=== PATIENT | male | born 1975 | race Caucasian/White ===

== ENCOUNTER → 2021-07-10 09:28 | Outpatient (BNVA) | payer OTHER, SELFPAY | PROVIDERS: PCP Internal Medicine; Referring Provider Internal Medicine; Visit Provider Physician Assistant Surgical | DX: Z13.89 Encounter for screening for other disorder (principal) ==

== ENCOUNTER 2021-07-21 10:54 | Outpatient (REF) | payer OTHER, SELFPAY ==
--- NOTE | ~2021-07-21 | XR_ITS ---
EXAMINATION: XR CHEST CLINICAL INFORMATION: Obesity COMPARISON: Chest x-ray 02/25/2019 TECHNIQUE: 2 views of the chest were obtained. FINDINGS: Cardiac silhouette is normal in size. The lungs are adequately aerated. There is no lobar consolidation. No pleural effusion or pneumothorax. Mild degenerative changes of the spine. XR/XR chest 2V IMPRESSION: No acute pulmonary pathology.
[2021-07-21 12:41] LABS: MANUAL DIFF FLAG NO
[2021-07-21 13:08] LABS: Basophils Percent Auto 0.3 % (0-2); Eosinophils Absolute Auto 0.2 X10*3/uL (0.0-0.4); Eosinophils Percent Auto 2.5 % (0-4); Hematocrit 41.4 % (42.0-52.0); Hemoglobin 14.1 g/dl (14.0-18.0); Imm Gran Abs Auto 0.03 X10*3/uL (0.00-0.03); Imm Gran Pct Auto 0.3 % (0.0-0.4); Lymphocytes Absolute Auto 1.8 X10*3/uL (1.2-4.9); Lymphocytes Percent Auto 18.3 % (20-40); Mean Corpuscular HGB Conc 34.1 g/dl (31.0-36.0); Mean Corpuscular Hemoglobin 29.1 pg (27.0-33.0); Mean Corpuscular Volume 85.4 fL (80.0-98.0); Mean Platelet Volume 9.4 fL (9.4-12.4); Monocytes Absolute Auto 0.6 X10*3/uL (0.1-1.2); Monocytes Percent Auto 6.3 % (2-11); Neutrophils Percent Auto 72.3 % (45-73); Platelet Count 300 X10*3/uL (160-400); Red Blood Count 4.85 X10*6/uL (4.60-5.80); White Blood Count 9.6 X10*3/uL (4.8-10.8)
[2021-07-21 13:20] LABS: Estimated Average Glucose 103 mg/dL; Hemoglobin A1c % 5.2 %
[2021-07-21 13:48] LABS: Alanine Aminotransferase 20 U/L (0-40); Alkaline Phosphatase 104 U/L (39-117); Anion Gap 11 (12-20); Aspartate Amino Transferase 16 U/L (5-37); Bilirubin Total 0.9 mg/dL (0.0-1.0); Blood Urea Nitrogen 14 mg/dL (9-16); C Reactive Protein 2.67 mg/dL (< or = 0.50); Calcium 9.5 mg/dL (8.4-10.2); Carbon Dioxide 25 mmol/L (22-29); Chloride 107 mmol/L (96-108); Cholesterol 173 mg/dL; Estimated Glomerular Filt Rate 60; Glucose Random 89 mg/dL (60-115); HDL Cholesterol 24 mg/dL; Iron 65 mcg/dL (45-160); LDL Cholesterol Calculated 114 mg/dl; Percent Iron Saturation 25 % (15-50); Sodium 139 mmol/L (135-145); Total Iron Binding Capacity 257 mcg/dL (228-428); Total Protein 7.6 g/dL (6.5-8.0); Triglycerides 179 mg/dL; Unsaturated Iron Binding 192 ug/dL
[2021-07-21 14:06] LABS: Ferritin 185 ng/mL (20-250); Insulin 17 uU/mL (2-29); TSH reflex Free T4 1.92 uIU/mL (0.32-4.0); Vitamin D 25-OH Total 11.4 ng/mL (>30)
[2021-07-21 14:35] LABS: Folate 14.3 ng/mL (> or = 4.0); Vitamin B12 265 pg/mL (200-900)
[2021-07-22 15:07] LABS: H Pylori Breath Test Negative (Negative)
[2021-07-24 15:53] LABS: Calcium (PTHI) 9.4 mg/dL (8.6-10.3); PTHI 91 pg/mL (16-77)
[2021-07-25 00:57] LABS: Zinc 80 mcg/dL (60-130)
[2021-07-26 11:32] LABS: Vitamin B1 8 nmol/L (8-30)
[2021-07-26 16:41] LABS: Vitamin A 38 mcg/dL (38-98)
== END 2021-07-21 10:55 | disposition home or self-care (01) ==
LOC: HO.XRAY 10:54
PROVIDERS: PCP Internal Medicine; Referring Provider Internal Medicine; Visit Provider Physician Assistant Surgical
DX: E66.9 Obesity, unspecified (principal); Z71.3 Dietary counseling and surveillance; Z11.0 Encounter for screening for intestinal infectious diseases
CPT/HCPCS: 36415; 71046; 80053; 80061; 82306; 82607; 82728; 82746; 83013; 83036; 83525; 83540; 83970; 84425; 84443; 84590; 84630; 85025; 86140; 99202; 99211

== ENCOUNTER → 2021-07-27 11:00 | Outpatient (BNVA) | payer OTHER, SELFPAY | PROVIDERS: PCP Internal Medicine; Visit Provider Counselor Mental Health | DX: F43.20 Adjustment disorder, unspecified (principal); E66.9 Obesity, unspecified | CPT/HCPCS: 90791 ==

== ENCOUNTER → 2021-07-28 09:10 | Outpatient (REF) | payer OTHER, SELFPAY ==
--- NOTE | 2021-07-28 09:16 | ECG_ITS ---
Test Reason : e66.9 Blood Pressure : / mmHG Vent. Rate : 064 BPM Atrial Rate : 064 BPM P-R Int : 152 ms QRS Dur : 092 ms QT Int : 400 ms P-R-T Axes : 054 024 002 degrees QTc Int : 412 ms Normal sinus rhythm Normal ECG When compared with ECG of 25-FEB-2019 20:05, No significant change was found Referred By: Mandeep Clay Electronically Signed By:SALOMON PFEIFFER
== END ==
LOC: HO.CARD 09:10
PROVIDERS: PCP Internal Medicine; Visit Provider Physician Assistant Surgical
DX: E66.9 Obesity, unspecified (principal)
CPT/HCPCS: 93005

== ENCOUNTER → 2021-08-04 14:17 | Outpatient (BNVA) | payer OTHER, SELFPAY | PROVIDERS: PCP Internal Medicine; Visit Provider Dietitian, Registered | DX: E66.9 Obesity, unspecified (principal) | CPT/HCPCS: 97802 ==

== ENCOUNTER → 2021-08-18 09:13 | Outpatient (BNVA) | payer OTHER, SELFPAY | PROVIDERS: PCP Internal Medicine; Visit Provider Physician Assistant Surgical | DX: E66.9 Obesity, unspecified (principal); Z68.38 Body mass index [BMI] 38.0-38.9, adult | CPT/HCPCS: 99212 ==

== ENCOUNTER 2021-09-06 09:31 | Outpatient (REF) | payer OTHER, SELFPAY ==
--- NOTE | ~2021-09-06 | US_ITS ---
EXAMINATION: US COMPLETE ABDOMEN WITH LIVER ELASTOGRAPHY CLINICAL INFORMATION: Obesity COMPARISON: None. TECHNIQUE: Real-time imaging of the abdominal viscera. Noninvasive ultrasound liver fibrosis assessment is performed using Chris ElastPQ point quantification shear wave elastography (2D-SWE) with a C5-2 MHz transducer. Multiple elastography samples are obtained. FINDINGS: PANCREAS: Most of the pancreas is obscured by overlying gas. ABDOMINAL AORTA: Mid abdominal aorta is normal caliber. The proximal and distal abdominal aorta is obscured by overlying gas. INFERIOR VENA CAVA: Visualized portions are normal. LIVER: Normal. The liver demonstrates normal size, contour and echogenicity. No focal lesion or intrahepatic biliary duct dilatation. The right lobe measures 16.7 cm in length. The left lobe measures 9.88 cm in length. Portal flow is hepatopedal. Shear wave liver elastography median stiffness is 1.28 m/s (reference: normal median stiffness is 1.3 m/s or less). IQR/median stiffness to assess sampling precision is 0.1 (reference: good quality data set is IQR/median stiffness of 0.15 or less). GALLBLADDER: There is a small nonmobile echogenic lesion along the inner gallbladder wall suggestive polyp. The gallbladder wall is thickened measuring 0.3 cm. The gallbladder is physiologically distended without evidence of stones, sludge, wall thickening or pericholecystic fluid. COMMON BILE DUCT: Normal in caliber measuring 0.2 cm in diameter. RIGHT KIDNEY: Normal. No hydronephrosis. No renal calculi or focal parenchymal lesions. The kidney measures 10.8 cm in maximum dimension. LEFT KIDNEY: Normal. No hydronephrosis. No renal calculi or focal parenchymal lesions. The kidney measures 11.5 cm in maximum dimension. SPLEEN: Normal. The spleen measures 13.7 cm in maximum dimension. FREE FLUID: None US/US abdomen comp w elastography IMPRESSION: 1. Limited exam secondary to patient's body habitus with pancreas, abdominal aorta and IVC not visualized. There is likely a small gallbladder polyp. 2. Liver elastography: Median liver stiffness 1.28 m/s suggestive of high probability normal. REFERENCE: Society of Radiologists in Ultrasound Liver Stiffness Thresholds (2020): LIVER STIFFNESS THRESHOLDS: *Liver Stiffness equal or less than 1.3 m/s: High probability of being normal. *Liver Stiffness less than 1.7 m/s: In the absence of other known clinical signs, rules out compensated advanced chronic liver disease. *Liver Stiffness 1.7-2.1 m/s: Suggestive of compensated advanced chronic liver disease but need further test for confirmation. *Liver Stiffness over 2.1 m/s: Rules in compensated advanced chronic liver disease. *Liver Stiffness over 2.4 m/s: Suggestive of clinically significant portal hypertension. QUALITY OF DATA SET: *IQR/Median value equal or less than 0.15 implies a quality data set. *IQR/Median value over 0.15 implies a poor quality data set. SIGNIFICANT CHANGE FROM PRIOR EXAM: Significant change if liver stiffness measurement is 10% or greater from prior exam. OTHER CONSIDERATIONS: The stage of liver fibrosis may be overestimated in the setting of acute hepatitis, liver inflammation, elevated liver function tests, hepatic vascular congestion, obstructive cholestasis, non-fasting state, and infiltrative diseases such as amyloidosis and lymphoma. In some patients with NAFLD, the liver stiffness thresholds for compensated advanced chronic liver disease may be lower. In causes other than viral hepatitis and NAFLD, liver stiffness thresholds are not well established.
--- NOTE | ~2021-09-06 | FL_ITS ---
EXAMINATION: XR FLUOROSCOPY UPPER GI WITH AIR CLINICAL INFORMATION: Obesity. Preop. COMPARISON: None TECHNIQUE: Routine upper GI contrast study was performed in upright and lying position. FINDINGS: Following oral administration of thick barium and effervescent granules there is normal propagation bolus from the oral cavity through the pharynx, esophagus into stomach without any evidence of obstruction, narrowing or stricture. On placing patient supine and prone lying the course, caliber and peristalsis of the stomach and the duodenal bulb is normal. The mucosal pattern of the stomach and the duodenum is normal. FLUOROSCOPY TIME: 1.3 minutes DOSE AREA PRODUCT: 205 uGy-m2 (microgray-meter squared) FL/FL upper GI w air IMPRESSION: Unremarkable upper GI exam.
== END 2021-09-06 09:32 | disposition home or self-care (01) ==
LOC: HO.US 09:31
PROVIDERS: Visit Provider Surgery
DX: E66.9 Obesity, unspecified (principal)
CPT/HCPCS: 74246; 76705; 76981

== ENCOUNTER → 2021-09-13 08:29 | Outpatient (BNVA) | payer OTHER, SELFPAY | PROVIDERS: PCP Internal Medicine; Referring Provider Internal Medicine; Visit Provider Physician Assistant Surgical | DX: E66.9 Obesity, unspecified (principal); Z68.36 Body mass index [BMI] 36.0-36.9, adult | CPT/HCPCS: 99212 ==

== ENCOUNTER 2021-10-10 07:56 | Outpatient (REF) | payer OTHER, SELFPAY ==
[2021-10-10 08:23] LABS: MANUAL DIFF FLAG NO
[2021-10-10 08:32] LABS: Basophils Percent Auto 0.5 % (0-2); Eosinophils Absolute Auto 0.3 X10*3/uL (0.0-0.4); Eosinophils Percent Auto 3.2 % (0-4); Hematocrit 41.4 % (42.0-52.0); Hemoglobin 13.8 g/dl (14.0-18.0); Imm Gran Abs Auto 0.02 X10*3/uL (0.00-0.03); Imm Gran Pct Auto 0.2 % (0.0-0.4); Lymphocytes Absolute Auto 1.7 X10*3/uL (1.2-4.9); Lymphocytes Percent Auto 20.5 % (20-40); Mean Corpuscular HGB Conc 33.3 g/dl (31.0-36.0); Mean Corpuscular Hemoglobin 29.1 pg (27.0-33.0); Mean Corpuscular Volume 87.2 fL (80.0-98.0); Mean Platelet Volume 9.9 fL (9.4-12.4); Monocytes Absolute Auto 0.6 X10*3/uL (0.1-1.2); Monocytes Percent Auto 7.3 % (2-11); Neutrophils Absolute Auto 5.5 x10*3/uL (2.0-8.3); Neutrophils Percent Auto 68.3 % (45-73); Platelet Count 298 X10*3/uL (160-400); Red Blood Count 4.75 X10*6/uL (4.60-5.80); Red Cell Distribution Width 12.7 % (11.0-16.0); White Blood Count 8.1 X10*3/uL (4.8-10.8)
[2021-10-10 08:35] LABS: Estimated Average Glucose 91 mg/dL; Hemoglobin A1c % 4.8 %; INTERNATIONAL NORM RATIO 1.1 (0.9-1.1); Prothrombin Time 13.1 SEC (10.0-13.1)
[2021-10-10 09:05] LABS: Alanine Aminotransferase 17 U/L (0-40); Albumin Level 3.9 g/dL (3.5-5.0); Alkaline Phosphatase 98 U/L (39-117); Anion Gap 11 (12-20); Aspartate Amino Transferase 13 U/L (5-37); Bilirubin Total 0.7 mg/dL (0.0-1.0); Blood Urea Nitrogen 17 mg/dL (9-16); C Reactive Protein 2.39 mg/dL (< or = 0.50); Carbon Dioxide 27 mmol/L (22-29); Chloride 105 mmol/L (96-108); Cholesterol 142 mg/dL; Estimated Glomerular Filt Rate 56; Glucose Random 92 mg/dL (60-115); HDL Cholesterol 25 mg/dL; LDL Cholesterol Calculated 97 mg/dl; Potassium 4.2 mmol/L (3.3-5.1); Sodium 139 mmol/L (135-145); Total Protein 7.1 g/dL (6.5-8.0); Triglycerides 101 mg/dL
[2021-10-10 09:26] LABS: Insulin 9 uU/mL (2-29); TSH reflex Free T4 3.11 uIU/mL (0.32-4.0)
== END 2021-10-10 07:57 | disposition home or self-care (01) ==
LOC: HO.LAB 07:56
PROVIDERS: PCP Internal Medicine; Visit Provider Surgery
DX: E66.9 Obesity, unspecified (principal); Z68.34 Body mass index [BMI] 34.0-34.9, adult
CPT/HCPCS: 36415; 80053; 80061; 83036; 83525; 84443; 85025; 85610; 85730; 86140

== ENCOUNTER 2021-10-18 06:06 | Inpatient (IN) | payer OTHER, SELFPAY ==
[2021-10-12 10:12] VITALS: BMI 35.4
[2021-10-12 10:27] VITALS: BMI 35.4
--- NOTE | 2021-10-14 14:22 | MHC.SHP ---
Pre-Procedural Eval Section A Date of Service: 10/14/21 The patient is an INPATIENT: Yes The History & Physical has been completed within 30 days and I have reviewed it.: Yes Section B Chief Complaint: obesity Relevant Family History (Specify if Yes): No Relevant Social History: None Present Medications: None Medical History: No relevant PMH History of Previous Operations: No relevant previous surgery Allergies: Allergies Allergy/AdvReac Type Severity Reaction Status Date / Time No Known Allergies Allergy Verified 09/13/21 08:46 Review of Systems Sugical H&P ROS: Negative: Constitution, Cardiovascular, Respiratory, Neurological, Psychiatric, Hem-Onc, Allergic/Immunologic, Gastrointestinal, Genitourinary, Musculoskeletal, Integumentary, Endocrine and Eyes/Ears/Nose/Throat Exam Surgical H&P Exam: Normal: HEENT, Normal: Heart, Normal: Lungs, Normal: Extremities, Normal: Abdomen, Normal: Skin and Normal: Neurological Plan Diagnosis/Plan: Unchanged I have reviewed the history and physical and performed a pertinent physical examination on my patient. No changes have occurred unless specified.
--- NOTE | 2021-10-17 09:00 | HO.ANESPROP2 ---
Documented by User: Sara Shah NP 10/17/21 09:06 HPI - Anesthesia Eval Consult details Narrative: 46yo M for Gastrectomy Sleeve,EGD,poss diaphragmatic hernia,poss ventral hernia,poss open, PMFSH Active Problems Active Problems: All Active Problems (Updated 10/12/21 @ 10:33 by Emy Vega RN) Obesity (BMI 30-39.9) (Acute) GERD (gastroesophageal reflux disease) (Acute) Adjustment disorder (Acute) Obesity (Acute) BMI 37.0-37.9, adult (Acute) BMI 34.0-34.9,adult (Acute) Past Medical History Medical History (Updated 10/12/21 @ 10:33 by Emy Vega RN) COVID-19 vaccination declined GERD (gastroesophageal reflux disease) Family History Family History Mother Hypertension Stroke Father No problems noted. Brother Hypertension Sister No problems noted. Son No problems noted. Son No problems noted. Son No problems noted. Son No problems noted. Son No problems noted. Son No problems noted. Daughter No problems noted. Daughter No problems noted. Daughter No problems noted. Daughter No problems noted. Surgical History Surgical History (Updated 10/12/21 @ 10:06 by Emy Vega RN) History of ankle surgery History of incision and drainage Social History Social History Are you a primary childcare worker to a significant other at home: No Do you presently have visiting nurse or other home services: No Alcohol intake: never Patient Tobacco Use Status: Never used Tobacco Use of substances other than those prescribed or required for medical reasons: No Have you been hit, kicked, punched, or otherwise hurt by someone within the past year? If so, by whom?: No Are you DNR?: No Advance Directives: No Advance Directives Information Provided: Yes (brochure mailed) Advance Directives on File: No Recently lost weight without trying: No Eating poorly because of decreased appetite: No Nutrition Risks: No Nutritional Risk Poor oral hygiene: No Meds Allergies Allergy/AdvReac Type Severity Reaction Status Date / Time No Known Allergies Allergy Verified 09/13/21 08:46 Exam Exam Date and Time: October 17, 2021 0900 Height,Weight and Vital Signs: Height 6 ft Weight 118.388 kg Pertinent Lab Results Pertinent Lab Results: Laboratory Tests 10/10/21 08:15 Blood Type A Positive Antibody Screen NEGATIVE Laboratory Tests 10/10/21 10/10/21 08:15 08:15 WBC 8.1 Hgb 13.8 L Hct 41.4 L Plt Count 298 Sodium 139 Potassium 4.2 Chloride 105 Carbon Dioxide 27 BUN 17 H Creatinine 1.37 Narrative Narrative: EKG 07/2021 Vent. Rate : 064 BPM ? ? Atrial Rate : 064 BPM ?? P-R Int : 152 ms? QRS Dur : 092 ms ? ? QT Int : 400 ms ? ? ? P-R-T Axes : 054 024 002 degrees ?? QTc Int : 412 ms ? Normal sinus rhythm Normal ECG When compared with ECG of 25-FEB-2019 20:05, No significant change was found Assessment and Plan Assessment Anesthesia Assessment: Chart Reviewed Documented by User: Georgina Oakes MD 10/18/21 07:25 [facility]LY [facility], [facility] Past Medical History Medical History (Updated 10/12/21 @ 10:33 by Emy Vega RN) COVID-19 vaccination declined GERD (gastroesophageal reflux disease) Family History Family History Mother Hypertension Stroke Father No problems noted. Brother Hypertension Sister No problems noted. Son No problems noted. Son No problems noted. Son No problems noted. Son No problems noted. Son No problems noted. Son No problems noted. Daughter No problems noted. Daughter No problems noted. Daughter No problems noted. Daughter No problems noted. Family history of problems with anesthesia: No Surgical History Surgical History (Updated 10/12/21 @ 10:06 by Emy Vega RN) History of ankle surgery History of incision and drainage History of Problems with Anesthesia: No Social History Social History Are you a primary childcare worker to a significant other at home: No Do you presently have visiting nurse or other home services: No Alcohol intake: never Patient Tobacco Use Status: Never used Tobacco Use of substances other than those prescribed or required for medical reasons: No Have you been hit, kicked, punched, or otherwise hurt by someone within the past year? If so, by whom?: No Are you DNR?: No Advance Directives: No Advance Directives Information Provided: Yes (brochure mailed) Advance Directives on File: No Recently lost weight without trying: No Eating poorly because of decreased appetite: No Nutrition Risks: No Nutritional Risk Poor oral hygiene: No Meds Allergies Allergy/AdvReac Type Severity Reaction Status Date / Time No Known Allergies Allergy Verified 09/13/21 08:46 Exam Height,Weight and Vital Signs: Height 6 ft Weight 118.388 kg Vital Signs Temp Pulse Resp BP Pulse Ox O2 Del Method 10/18/21 06:31 97.3 F 61 16 137/68 96 Room Air Pertinent Lab Results Pertinent Lab Results: Laboratory Tests 10/10/21 08:15 Blood Type A Positive Antibody Screen NEGATIVE Laboratory Tests 10/10/21 10/10/21 08:15 08:15 WBC 8.1 Hgb 13.8 L Hct 41.4 L Plt Count 298 Sodium 139 Potassium 4.2 Chloride 105 Carbon Dioxide 27 BUN 17 H Creatinine 1.37 Lab Results 10/10/21 10/17/21 Range/Units 08:15 10:55 COVID-19 ([facility]) Negative (Negative) COVID-19 Clin Com See Note Blood Type A Positive Antibody Screen NEGATIVE Airway Mallampati Class: II TM Dist: >3cm Neck ROM: Full Loose/Missing/Broken Teeth: No (Patient denies broken or loose teeth) Heart: RRR Lungs: CTAB Assessment and Plan Assessment Anesthesia Assessment: Anesthesia Plan Discussed Final Anesthetic Review Family History of Problems with Anesthesia: No History of Problems with Anesthesia: No NPO: Yes ASA Class: III Final Preanesthetic Review: No Changes in Pt Med Stat, Meds/Allgs Chart Reviewed, Consent Obtained/Reviewed and Anes Risks/Benef Reviewed Patient Risk: Intermediate Procedure Risk: Intermediate Assessment/Block/Sedation in SS: Assess/Block/Sedation- Anesthetic Plan Anesthetic Plan: GA Disposition: Standard PACU and Inp. Admit - Standard Bed
[2021-10-17 11:20] LABS: COVID-19 Test Negative (Negative)
[2021-10-18] VITALS (15 sets, daily range): BP systolic 137–186; BP diastolic 64–106; PULSE 55–98; RESP 16–20; TEMP 36.1–36.8; O2SAT 90–97
[2021-10-18] MEDS: Lactated Ringers 1,000 ML 999 ML IV ×2 (06:40→07:40)
--- NOTE | 2021-10-18 10:17 | PM.DS ---
DS: Providers Provider Date of Service: 10/19/21 Date of admission: 10/18/21 06:06 Primary care physician: Manda Lin MD DS: Summary Hospital Course Hospital Course: ADMITTING DIAGNOSIS: morbid obesity DISCHARGE DIAGNOSIS: same, s/p laparoscopic sleeve gastrectomy PAST SURGICAL HISTORY: ankle surgery PROCEDURE: upper endoscopy, laparoscopic sleeve gastrectomy DISCHARGE SUMMARY: History of Present Illness: The patient is a 46year-old woman with a BMI of 39.7 kg/m2 and associated co-morbidities as described above. The patient had extensive work-up,lost 35.6 lbs preoperatively and was electively scheduled for laparoscopic, possible open sleeve gastrectomy and gastropexy. Risks and complications of the surgery were discussed with the patient in advance, particularly the possibility of , pulmonary embolism, anastomotic leak, bleeding, bowel injury, GERD, cardiac, renal or pulmonary complications. The patient understood all the risks and was in agreement with the surgical plan. Hospital Course: The patient underwent an uneventful laparoscopic sleeve gastrectomy with gastropexy on the day of admission. Postoperatively, the patient was transferred to the surgical floor. The patient received IV Acetaminophen and IV dilaudid for pain control. Patient was started on bariatric phase 1 diet POD #0. On postoperative day one, the patient was feeling well without nausea, vomiting, fevers, or tachycardia. The patient had some mild incisional pain and the abdomen was soft. On the morning of postoperative day one, the patient was continued on 1 ounce of water or ice every half hour. During the day, the patient did fairly well, having some incisional pain, but able to ambulate adequately and to tolerate liquids well. Since the patient is doing well, we decided that the patient was ready to be discharged. The patient was given instructions to follow-up with me next week and to call my office for any fever over 101, persistent abdominal pain, nausea, vomiting, GERD, symptoms of DVT such as calf tenderness, or leg swelling, or pulmonary embolism such as chest pain or shortness of breath. The patient was also instructed to drink 40-60 ounces of liquids per day using the 1-ounce cups. The patient had been given prescriptions for Tylenol for pain, Zofran prn for nausea, and pantoprazole and carafate previously. The patient was encouraged to ambulate and use the incentive spirometer. The patient was allowed to shower, but no baths, and encouraged to stay active at home. All of these instructions were given to the patient personally. All questions were answered and the patient understood all instructions, the instructions were also given to the patient in print. Time Spent with Patient Time attestation: Total time spent providing and/or coordinating discharge services: Discharge coordination time: Less than 30 minutes Quality: Safe Use of Opioids Does Pt have an Active Cancer Diagnosis on the Problem List?: No Quality: Stroke Does the patient have a stroke diagnosis?: No Physical Exam Vital Signs: Vital Signs: Last Vital Signs Temp 97.3 F 10/18/21 06:31 Pulse 61 10/18/21 06:31 Resp 16 10/18/21 06:31 BP 137/68 10/18/21 06:31 Pulse Ox 96 10/18/21 06:31 O2 Del Method 10/18/21 06:31 BMI result Body Mass Index 35.4 DS: Data Data Completed and Pending Pending studies at discharge: Pending at discharge 10/18/21 09:19 Surgical [PTH] Routine Labs on day of discharge: Laboratory Results - last 24 hr 10/17/21 10:55 COVID-19 ([facility]) Negative COVID-19 Clin Com See Note Discharge Plan Discharge Anticipated Discharge Date/Time: 10/19/21 10:14 Patient Disposition: Home, Self-Care Discharge Diagnosis: s/p sleeve gastrectomy Referrals: Manda Lin MD [Primary Care Provider] - 1 Week Discharge Medications: Continued pantoprazole 40 mg tablet,delayed release (DR/EC) 40 mg PO DAILY Qty: 30 2RF Discontinued cholecalciferol (vitamin D3) 125 mcg (5,000 unit) capsule 125 mcg PO DAILY Qty: 30 3RF mecobalamin (vitamin B12) 1,000 mcg tablet,disintegrating 1,000 mcg sublingual DAILY Qty: 30 2RF Rx Instructions: place tablet under tongue and allow to dissolve for at least30 secs before swallowing Discharge Orders: Discharge Order (Routine); Ordered 10/19/21 Ordered By: Jcarlos Hernández Activity on Discharge: No heavy lifting Stand Alone Forms: Patient Portal Discharge page Care Plan Goals: weight loss Health Concerns: obesity Plan of Treatment: No tub baths, sex or returning to work until discussed at first post op appointment. No exercise, alcohol, tobacco or illegal drug use. Continue to use incentive spirometer hourly while awake. Walk in home for 5- 10 minutes every 2 hours during the first week. Continue phase 1 diet today and start phase 2 diet tomorrow morning. Follow all instructions in the bariatric handbook and call with any questions. 1. Please call your doctor or come back to the emergency room should any new symptoms arise. 2. You will receive a courtesy call from [facility] 24-48 hours after discharge. 3. Activity: abstain from alcohol, practice limited stair climbing, no bending, no driving, no exercise, no illicit substances, no lifting, no sex, no tub bath, no work. 4. Diet: continue as discussed with bariatric team.. 5. Dressing Change/Wound Care: Do not change or remove surgical dressings unless they are wet or soiled. 6. Call your doctor if: - Your temperature exceeds 101.5 F - You experience excessive pain or swelling - You have an unexpected reaction to medication - You have excessive bleeding - You experience continued vomiting/nausea - Your incision begins to separate - Your incision shows signs of infection such as increased redness, swelling, excessive pain, heat, or drainage (light blood or clear fluid is normal) 7. General instructions: No lifting greater than 5 lbs for the next 4 weeks[address] driving within 24 hours of taking narcotic pain medications. If you do not move your bowels in the next 2 days, please take milk of magnesia over the counter. Please follow the post op diet and do not advance your diet until you are seen in the office in about 2 weeks. Please walk around your home every hour or two to prevent blood clots from forming in your legs. You do not need to wake from sleeping to walk. Please sleep in a bed or couch to prevent kinking at the hips and knees. Please take your incentive spirometer (your lung desk lieutenant) home with you and use it for the next few days to prevent pneumonias. You may shower, no hot tubs, baths or swimming pools. Please call the office with any questions or concerns such as increasing abdominal pain, fever, chills, shortness of breath, chest pain, leg pain or swelling, or redness or drainage from your incisions. Do not hesitate to contact the office with any questions at . The patient's medical history has been reviewed and they are considered low risk for post op DVT and therefore DVT prophylaxis is not considered necessary. Travel after surgery was reviewed. The patient has not disclosed any travel plans during the first 30 days after surgery and they have been advised that within the first 30 days after surgery any bus, plane, train or car travel over 2 hours in duration is contraindicated due to the possibility of developing blood clots from immobility. Any travel, needs to include periods of ambulation of 10 minutes in duration every 2 hours. The patient was instructed to discuss any plans for travel during this period with their bariatric surgeon. Assessment: stable, post op sleeve gastrectomy
--- NOTE | 2021-10-18 10:21 | P.BOP_ITS ---
Brief Operative Note Date of Service: 10/18/21 Pre-op diagnosis: Severe obesity Post-op diagnosis: same Procedure: INITIAL PATIENT BMI ON PRESENTATION AT OUR OFFICE: 40.3 kg/m2 LAST BMI BEFORE SURGERY: 35.5 kg/m2 COMORBIDITIES: none ?The patient presented to the Weight Management Program with significant obesity that was negatively impacting the patient's comorbidities as listed above.? The program is a phased program with a special focus on preoperative medical weight management to promote substantial weight loss and prepare the patients for the second phase of the program: bariatric surgery. The patient participated in an intensive weekly lifestyle ?intervention and exercise program during which the patient ?has lost between the initial office visit and the last preoperative visit 35.6lbs, or 12% of initial actual body weight. It was deemed appropriate for the patient to now have bariatric surgery. In light of the current Covid-19 pandemic and the well documented strong association of obesity and increased risk of worse outcomes if infected with Covid-19 (REFERENCES: https://pubmed.ncbi.nlm.nih.gov/28847952/ ,? https://pubmed.ncbi.nlm.nih.gov/46522413/ ), any delay in undergoing bariatric surgery may lead to the patient's worsening health condition and increased?risk of more severe Covid-19 disease if infected. In addition a recent?study from [facility] published in [facility] on 02/13/2021 ([email or web address]) found that, among patients with obesity, substantial weight loss achieved with surgery was associated with improved outcomes of COVID-19 infection. The findings suggest that obesity can be a modifiable risk factor for the severity of COVID-19 infection. In addition, the patient met the BMI-criteria for bariatric surgery based on the BMI on initial presentation. The patient should not be penalized for achieving such weight loss because ?it is not sustainable long-term without surgical intervention and it was achieved in preparation for bariatric surgery ?under my direction and based on my published research ([email or web address]).[email or web address] and? https://www.soard.org/article/[email or web address](94)38520-X/pdf ) ?that a 10% preoperative weight loss improves long-term weight loss after surgery and reduces perioperative complications.? Insurance carriers such as [employer] have endorsed my recommendations ?and have included in their policies criteria to include a 10% preoperative weight loss requirement. PROCEDURE: Esophago-gastroscopy, laparoscopic sleeve gastrectomy and laparoscopic gastropexy INDICATIONS: This is a 46 year-old male who was electively scheduled for laparoscopic, possibly open sleeve gastrectomy. The risks and complications of the procedure were discussed with the patient in advance, particularly the possibility of ; pulmonary embolism; staple line leak; bleeding; GERD; cardiac, pulmonary, or renal complications; as well as long-term problems such as insufficient weight loss, vitamin deficiency, strictures, or ulcers. The patient understood all the risks, and was in agreement to proceed with surgery. DESCRIPTION OF PROCEDURE: After informed consent was obtained from the patient, the patient was given preoperative antibiotics, and was transferred to the operating room. After successful induction of general anesthesia, pneumatic compression devices were placed on both lower extremities. An upper endoscopy was performed next. The oropharynx and esophagus appeared to be within normal limits. There was no diaphragmatic hernia present consistent with the findings of the preoperative upper GI. The stomach was entered. Then after all fluid and air were suctioned and the stomach was fully decompressed, the scope was withdrawn and secured in the mid esophagus. The patient was then prepped and draped in the usual sterile manner, and abdominal access was established at the right upper quadrant with the Eden technique. A 12 mm blunt port was inserted, and the abdomen was insufflated with CO2 to a pressure of 15 mmHg. Under direct visualization, additional ports were placed, specifically two 5 mm Versi-step ports to the left upper quadrant, and a 5 mm Versi-Step port to the right upper quadrant. 1% lidocaine plain was used to infiltrate all port sites as well as all fascia defects. Using the EndoClose suture passer device, I placed a #1 Polysorb tie across the falciform ligament in order to retract it up against the abdominal wall and prevent injury of the ligament with our instruments during the procedure. Following that, the patient was placed in a steep reverse Trendelenburg position. An additional 5 mm port was placed to the right flank for the Mediflex retractor that was used to retract the left lobe of the liver. The gastro-esophageal fat pad was opened with the ultrasonic device (Thunderbeat, Olympus) and the anterior esophagus and hiatus were exposed. The angle of His was opened with the ultrasonic device the fundus of the stomach from any diaphragmatic and splenic attachments. I then opened the gastrocolic ligament between the transverse colon and the greater curvature of the stomach with the ultrasonic device to enter the lesser sac and facilitate the ligation of the short gastric vessels. I started at a mid-point along the greater curvature and using the Thunderbeat, all short gastric vessels were divided all the way to the angle of His until the left raquel was completely dissected at its entirety. I then divided the gastro-colic lig ament distally to a distance of about 3-4 cm proximal to the pylorus. The stomach was then divided transversely with one Endo JAZ-45 purple, two JAZ- 60 purple loads and two JAZ-60 articulating orange loads using the AEON stapler and loads. Every effort was made that the gastric sleeve had a tubular shape and an even caliber throughout. Once the sleeve resection was completed, the staple line of the gastric sleeve was reinforced with Hemoclips. The resected stomach was retrieved without difficulty from the Eden port. A gastropexy was then performed in order to prevent postoperative GERD and partial gastric volvulus. Several interrupted 2.0 Surgidac sutures were placed between the sleeve's staple line and the previously divided greater omentum and gastro-colic ligament using the Endo-Stitch device. ?An upper endoscopy was performed. There was no narrowing at the GE junction. The scope was easily advanced all the way to the pylorus which was clearly visualized. There was no narrowing anywhere and the sleeve's caliber was even throughout. The sleeve's staple line was inspected and there was no evidence of ischemia, bleeding or dehiscence. At that point the gastroscope was withdrawn from the patient?s mouth while we were decompressing the bowel and the stomach from any remaining air. I looked into the lesser sac to see how the sleeve was situating and it was situating well. There was no bleeding from the staple line, spleen, or short gastric vessels. The Mediflex retractor was removed, and the undersurface of the liver was inspected and there was no bleeding. The patient was placed in supine position. I closed the fascial defect of the 12 mm port site with a figure of eight #1 Polysorb suture. Then 60cc of Ropivacaine plain with 10 mg of Dexamethasone were used to infiltrate the fascial closure as well as all skin incisions. A total of 5ml of Zynrelef was applied in the Eden wound. At this point, the abdomen was deflated, all ports were removed under direct vision, and no bleeding was noted from any of the port sites. The skin incisions were irrigated with saline and were closed with 4-0 absorbable monofilament sutures. Steri-Strips and OpSites were used to cover all incisions. The patient was extubated and was transferred in stable condition to the recovery room for further care. I was present and performed all tenorio parts of the procedure. Ms. Watkins was the first dyer. There were no residents to assist with this case. Fernie Hernández MD, PhD, FACS Surgeon: Jcarlos Hernández MD Anesthesia: GETA, local and other (TAP block and 5ml of Zynrelef) Was an Surgical Assistant Certified used for this Procedure?: Yes Surgical Assistant Certified: Blank Watkins Estimated blood loss (mL): 10 IV fluids (mL): 3,000 Urine output (mL): 0 (No Monroy to record) Pathology: other (Stomach) Condition: stable Disposition: PACU
--- NOTE | 2021-10-18 10:26 | PM.PNGS ---
Subjective Subjective Date of Service: 10/19/21 Interval history: Patient has mild incisional pain, but was able to ambulate and use the incentive spirometer. He is tolerating phase 1 bariatric diet Physical Exam Vital Signs: Vital Signs: Last Vital Signs Temp 97.0 F 10/18/21 10:18 Pulse 98 10/18/21 10:23 Resp 20 10/18/21 10:23 BP 182/101 H 10/18/21 10:23 Pulse Ox 97 10/18/21 10:23 O2 Del Method 10/18/21 10:23 O2 Flow Rate 4 10/18/21 10:23 BMI result Body Mass Index 35.4 GI: Inspection: Yes normal to inspection, Yes incision (clean, dry and intact) and Yes obesity Extrem: Right lower extremity: normal to inspection (no calf tenderness) Left lower extremity: normal to inspection (no calf tenderness) Objective Data Active Medications Fentanyl (Fentanyl Citrate/Pf 100 Mcg/2 Ml Vial) 25 mcg IVPUSH Q5M PRN; Protocol PRN Reason: Pain, Moderate (Pain Scale 4-6 Hydromorphone HCl (Hydromorphone Hcl 0.5 Mg/0.5 Ml Syringe) 0.25 mg IVPUSH Q5M PRN; Protocol PRN Reason: Pain, Severe (Pain Scale 7-10) Lactated Ringer's (Lr) 1,000 mls @ 100 mls/hr IVCONT .Q10H LUMA Promethazine HCl 6.25 mg/ (Sodium Chloride) 50.25 mls @ 201 mls/hr IV ONCE PRN PRN Reason: Nausea and Vomiting Ondansetron HCl (Ondansetron Hcl 4 Mg/2 Ml Vial) 4 mg IVPUSH ONCE PRN PRN Reason: Nausea and Vomiting Labs CBC & Chem 7: 10/19/21 05:16 10/19/21 05:16 Labs: Laboratory Results - last 24 hr 10/17/21 10:55 COVID-19 ([facility]) Negative COVID-19 Clin Com See Note Procedures Date of Service Date of Service: 10/19/21 Progress Note: A&P Assessment and plan (1) Obesity: Status: Acute Assessment and Plan: s/p laparoscopic sleeve gastrectomy and gastropexy Doing well Check am labs. If OK, will discharge home? (2) BMI 35.0-35.9,adult: Status: Acute (3) S/P laparoscopic sleeve gastrectomy: Status: Acute Time Spent With Patient Time: Total time spent is greater than 50% in coordination of care (as documented) at patient's floor/unit and/or counseling patient: Quality Stroke Does the patient have a stroke diagnosis?: No VTE Prior VTE?: No VTE Risk Level:: Surgical - moderate VTE Device Contraindication: N/A - Device Ordered VTE Drug Contraindication: Treatment Not Indicated
[2021-10-18] MEDS: Lactated Ringers 1,000 ML 100 ML IVCONT ×3 (10:33→19:25)
[2021-10-18] MEDS: Famotidine/PF 20 MG/2 ML VIAL IVPUSH ×2 (10:33→19:25)
[2021-10-18 10:38] LABS: Hematocrit 39.6 % (42.0-52.0)
[2021-10-18] MEDS: ondansetron HCL 4 MG/2 ML VIAL IVPUSH ×2 (10:45→19:25)
[2021-10-18 10:50] LABS: Anion Gap 14 (12-20); Blood Urea Nitrogen 15 mg/dL (9-16); Calcium 8.3 mg/dL (8.4-10.2); Carbon Dioxide 23 mmol/L (22-29); Chloride 106 mmol/L (96-108); Creatinine Clr Calc Pharmacy 87.8; Estimated Glomerular Filt Rate 54; Glucose Random 122 mg/dL (60-115); Potassium 4.3 mmol/L (3.3-5.1); Sodium 139 mmol/L (135-145)
[2021-10-18] MEDS: HYDROmorphone HCl 0.5 MG/0.5 ML SYRINGE 0.25 MG IVPUSH ×3 (10:54→18:12)
[2021-10-18] MEDS: ceFAZolin Sodium/Dextrose,Iso 2 GM/50 ML PIGGYBACK IV (12:53)
[2021-10-18] MEDS: 0.9 % Sodium Chloride Flush 3 ML SYRINGE IVFLUSH (19:25)
[2021-10-19] MEDS: ondansetron HCL 4 MG/2 ML VIAL IVPUSH (03:46)
[2021-10-19] MEDS: Lactated Ringers 1,000 ML 100 ML IVCONT (03:49)
[2021-10-19 04:00] VITALS: BP 132/60; PULSE 72; RESP 17; TEMP 36.6; O2SAT 94
[2021-10-19 06:47] LABS: MANUAL DIFF FLAG NO
[2021-10-19 06:52] LABS: Basophils Percent Auto 0.1 % (0-2); Hematocrit 37.7 % (42.0-52.0); Hemoglobin 12.6 g/dl (14.0-18.0); Imm Gran Abs Auto 0.05 X10*3/uL (0.00-0.03); Imm Gran Pct Auto 0.4 % (0.0-0.4); Lymphocytes Percent Auto 7.7 % (20-40); Mean Corpuscular HGB Conc 33.4 g/dl (31.0-36.0); Mean Corpuscular Hemoglobin 29.4 pg (27.0-33.0); Mean Corpuscular Volume 87.9 fL (80.0-98.0); Mean Platelet Volume 10.5 fL (9.4-12.4); Monocytes Absolute Auto 0.8 X10*3/uL (0.1-1.2); Monocytes Percent Auto 6.2 % (2-11); Neutrophils Absolute Auto 11.6 x10*3/uL (2.0-8.3); Neutrophils Percent Auto 85.6 % (45-73); Platelet Count 300 X10*3/uL (160-400); Red Blood Count 4.29 X10*6/uL (4.60-5.80); Red Cell Distribution Width 12.6 % (11.0-16.0); White Blood Count 13.5 X10*3/uL (4.8-10.8)
[2021-10-19 07:06] LABS: Anion Gap 16 (12-20); Blood Urea Nitrogen 14 mg/dL (9-16); Calcium 8.6 mg/dL (8.4-10.2); Carbon Dioxide 24 mmol/L (22-29); Chloride 106 mmol/L (96-108); Creatinine Clr Calc Pharmacy 93.1; Estimated Glomerular Filt Rate 58; Glucose Random 94 mg/dL (60-115); Potassium 4.2 mmol/L (3.3-5.1); Sodium 142 mmol/L (135-145)
[2021-10-19] MEDS: Famotidine/PF 20 MG/2 ML VIAL IVPUSH (07:29)
[2021-10-19 07:44] VITALS: BP 156/74; PULSE 57; RESP 20; TEMP 36.8; O2SAT 98
--- NOTE | 2021-10-19 08:30 | MHC.CM.PN ---
PATIENT LIVES WITH HIS FAMILY INDEPENDENT AT HOME AND COMMUNITY. SELF-EMPLOYED DENIES DME USE OR RECEIVING HOME SERVICES NOT COVID VAXED PCP-YJAAIRA COON HCP- EDUCATED, DECLINED TO COMPLETE AT THIS TIME SPOUSE TO TRANSPORT D/C PLAN: HOME SELF-CARE
--- NOTE | 2021-10-19 08:33 | MHC.CM.PN ---
PATIENT HAS BEEN MEDICALLY CLEARED FOR DISCHARGE TODAY; DISCHARGE DISPOSITION IS HOME SELF-CARE. SPOUSE TO TRANSPORT.
--- NOTE | 2021-10-20 06:49 | HO.POSTANES ---
Post Anesthesia Evaluation Post Anesthesia Evaluation Vital Signs: Patient seen on 10/19/21 7am. Vital signs were stable but computer was giving problems so note placed now Anesthesia: General Endotracheal-GETA Mental Status: Awake Pain Control: Satisfactory Nausea/Vomiting: None Hydration: Adequate Anesthesia-Related Issues: No Anes. Related Issues
== END 2021-10-19 09:31 | disposition home or self-care (01) | DRG 403 ==
LOC: HO.SSSA 10:17 → HO.S3 11:00
PROVIDERS: Physician Assistant; Physician Assistant Surgical; Admitting Provider Surgery; PCP Internal Medicine; Visit Provider Surgery
PROC: 0DB64Z3 Excision of Stomach, Percutaneous Endoscopic Approach, Vertical (ICD-10-PCS; CPT 43845; principal; 2021-10-18 07:30)
DX: E66.01 Morbid (severe) obesity due to excess calories (principal); K21.9 Gastro-esophageal reflux disease without esophagitis; Z28.310 Unvaccinated for COVID-19; Z68.35 Body mass index [BMI] 35.0-35.9, adult; Z20.822 Contact with and (suspected) exposure to COVID-19
CPT/HCPCS: 36415; 80048; 85014; 85018; 85025; 86850; 86900; 86901; 87635; 88307; 88342; A4649; C9088; J0131; J0690; J1100; J1170; J2250; J2405; J2550; J2795; J3010

== ENCOUNTER → 2022-01-22 09:52 | Outpatient (BNVA) | payer OTHER, SELFPAY | PROVIDERS: PCP Internal Medicine; Referring Provider Internal Medicine; Visit Provider Physician Assistant Surgical | DX: E66.3 Overweight (principal); Z68.29 Body mass index [BMI] 29.0-29.9, adult | CPT/HCPCS: 99212 ==

== ENCOUNTER → 2022-03-14 14:15 | Outpatient (BNVA) | payer OTHER, SELFPAY | PROVIDERS: PCP Internal Medicine; Referring Provider Internal Medicine; Visit Provider Physician Assistant Surgical | DX: E66.3 Overweight (principal); Z68.28 Body mass index [BMI] 28.0-28.9, adult | CPT/HCPCS: 99212 ==

== ENCOUNTER 2022-04-16 09:29 | Outpatient (REF) | payer OTHER, SELFPAY ==
[2022-04-16 10:33] LABS: MANUAL DIFF FLAG NO
[2022-04-16 12:07] LABS: Basophils Percent Auto 0.5 % (0-2); Eosinophils Absolute Auto 0.3 X10*3/uL (0.0-0.4); Eosinophils Percent Auto 4.2 % (0-4); Hematocrit 43.8 % (42.0-52.0); Hemoglobin 14.9 g/dl (14.0-18.0); Imm Gran Abs Auto 0.03 X10*3/uL (0.00-0.03); Imm Gran Pct Auto 0.4 % (0.0-0.4); Lymphocytes Absolute Auto 1.5 X10*3/uL (1.2-4.9); Lymphocytes Percent Auto 18.6 % (20-40); Mean Corpuscular Volume 88.1 fL (80.0-98.0); Mean Platelet Volume 10.3 fL (9.4-12.4); Monocytes Absolute Auto 0.7 X10*3/uL (0.1-1.2); Monocytes Percent Auto 8.7 % (2-11); Neutrophils Absolute Auto 5.3 x10*3/uL (2.0-8.3); Neutrophils Percent Auto 67.6 % (45-73); Platelet Count 269 X10*3/uL (160-400); Red Blood Count 4.97 X10*6/uL (4.60-5.80); Red Cell Distribution Width 12.5 % (11.0-16.0); White Blood Count 7.8 X10*3/uL (4.8-10.8)
[2022-04-16 13:08] LABS: Anion Gap 13 (12-20); Blood Urea Nitrogen 14 mg/dL (9-16); C Reactive Protein 0.39 mg/dL (< or = 0.50); Calcium 9.3 mg/dL (8.4-10.2); Carbon Dioxide 28 mmol/L (22-29); Chloride 109 mmol/L (96-108); Cholesterol 161 mg/dL; Estimated Glomerular Filt Rate > 60; Glucose Random 78 mg/dL (60-115); HDL Cholesterol 31 mg/dL; Iron 70 mcg/dL (45-160); LDL Cholesterol Calculated 113 mg/dl; Percent Iron Saturation 33 % (15-50); Potassium 4.5 mmol/L (3.3-5.1); Sodium 145 mmol/L (135-145); Total Iron Binding Capacity 215 mcg/dL (228-428); Triglycerides 85 mg/dL; Unsaturated Iron Binding 145 ug/dL
[2022-04-16 13:23] LABS: Ferritin 140 ng/mL (20-250); Folate 14.7 ng/mL (> or = 4.0); TSH reflex Free T4 1.73 uIU/mL (0.32-4.0); Vitamin B12 851 pg/mL (200-900); Vitamin D 25-OH Total 27.1 ng/mL (>30)
[2022-04-17 13:58] LABS: Calcium (PTHI) 9.9 mg/dL (8.6-10.3); PTHI 59 pg/mL (16-77)
[2022-04-18 17:24] LABS: Zinc 74 mcg/dL (60-130)
[2022-04-19 04:38] LABS: Vitamin A 37 mcg/dL (38-98)
[2022-04-20 04:59] LABS: Vitamin B1 10 nmol/L (8-30)
== END 2022-04-16 09:30 | disposition home or self-care (01) ==
LOC: HO.LAB 09:29
PROVIDERS: PCP Internal Medicine; Visit Provider Physician Assistant Surgical
DX: E66.3 Overweight (principal)
CPT/HCPCS: 36415; 80048; 80061; 82306; 82607; 82728; 82746; 83540; 83970; 84425; 84443; 84590; 84630; 85025; 86140; 99212

== ENCOUNTER → 2022-07-20 09:24 | Outpatient (BNVA) | payer OTHER, SELFPAY | PROVIDERS: PCP Internal Medicine; Referring Provider Internal Medicine; Visit Provider Physician Assistant Surgical | DX: E66.3 Overweight (principal); Z68.26 Body mass index [BMI] 26.0-26.9, adult | CPT/HCPCS: 99212 ==

== ENCOUNTER 2022-10-23 09:06 | Outpatient (AMB) | payer OTHER, SELFPAY ==
--- NOTE | 2022-10-23 09:11 | MHC.OFFVISWM ---
Intake VS Expanded 10/23/22 09:14 Height 6 ft Weight 193 lb 6.4 oz BMI 26.2 BP 143/75 H Blood Pressure Location Rt brachial Blood Pressure Position Sitting Pulse 60 Pulse Source Pulse Oximeter Temp 98.3 F Temperature Source Temporal Artery Scan Pulse Oximetry 100 Oxygen Delivery Method Room Air Body Fat 40.2 Body Fat Percentage 20.8 Free Fat Mass 153.2 Muscle Mass 145.8 Visceral Mass 9.0 Water Mass 107.4 BMR 2,019 Intake Visit Reasons: (OV) PO LSG 10/18/21 Call Center Operator Required: No Allergies No Known Allergies Allergy (Verified 10/23/22 09:13) Medication List - Last Reconciled 10/23/22 by FAUSTO Luna [celebrate Brody+D PO BID] [MVI PO DAILY] HPI HPI Comments History of Present Illness Details This?a?47?yo male who is s/p LSG without hiatal hernia repair on?10/18/22. Presents for 1 year post op visit. Weight today is 193.4 pounds, with a BMI of 26.2.? There has been a 100 pound weight loss,(initial weight 293.4 pounds) since starting the program on 07/21/21 reflecting a 34% total body weight loss and a weight loss of 64.8 pounds since surgery (operative weight 258.2 pounds) reflecting a 25% TBWL since surgery.? No complaints of nausea, emesis, abdominal pain or reflux. Reports infrequent but normal bowel movements every 1-2 days and uses stool softeners regularly.? He reports that he feels amazing, no complaints of pain nausea.? Now doing 8 mile walks, energy is great, satisfied w meal plan Present meal plan includes: Atkins RTD each 2 shakes per day, 7-9, 11-1 5-6 forks protein/5-6 forks veg 5-6 forks protein/5-6 forks veg drinking 56 oz water Exercise routine includes: walking/jogging outside, 4 x per week, 8 miles, 600 brody per session? Any post op complications: none PABLO: never DM: never HTN: never Hyperlipidemia: never GERD:?0-5 scale ??0 = no symptoms ??1 = symptoms noticeable but not bothersome ?2 =symptoms bothersome but not daily ? 3 = symptoms bothersome and daily ? 4 = symptoms affect daily activities ?5 = symptoms are incapacitating, unable to do daily activities ? How bad is the heartburn: 0 ? Heartburn while lying down: 0 ? Heartburn when standing up: 0 ? Heartburn after meals: 0 ? Does heartburn change your diet: 0 ? Does heartburn wake you up from sleep: 0 ? Do you have difficulty swallowin ? Do you have pain with swallowin ? If you take medicine for your reflux, does this affect your daily life: 0 Satisfaction with present condition - satisfied or not satisfied:? satisfied?? [facility] Medical History Adjustment disorder BMI 34.0-34.9,adult BMI 37.0-37.9, adult COVID-19 vaccination declined GERD (gastroesophageal reflux disease) Obesity (BMI 30-39.9) Surgical History History of ankle surgery History of incision and drainage S/P laparoscopic sleeve gastrectomy Family History Mother Hypertension Stroke Father No problems noted. Brother Hypertension Sister No problems noted. Son No problems noted. Son No problems noted. Son No problems noted. Son No problems noted. Son No problems noted. Son No problems noted. Daughter No problems noted. Daughter No problems noted. Daughter No problems noted. Daughter No problems noted. Social History Are you a primary home care rn to a significant other at home: No Do you presently have visiting nurse or other home services: No Alcohol intake: never Patient Tobacco Use Status: Never used Tobacco service: No Current occupational status: other Review of Systems Const All systems reviewed & are unremarkable except as noted in HPI and below Physical Exam Vital Signs: Last Vital Signs Temp 98.3 F 10/23/22 09:14 Pulse 60 10/23/22 09:14 BP 143/75 H 10/23/22 09:14 Pulse Ox 100 10/23/22 09:14 Oxygen Delivery Method Room Air 10/23/22 09:14 BMI result Body Mass Index 26.2 Const General: cooperative and no acute distress Orientation/consciousness: patient oriented x3 Resp Effort & Inspection: normal respiratory effort Auscultation: clear to auscultation bilaterally Cardio Rate: regular rate Rhythm: regular rhythm GI Inspection: Yes normal to inspection and Yes incision (well healed) Palpation (GI): Soft to palpation and no masses Neuro General: patient oriented x3 Assessment & Plan Assessment & Plan (1) Overweight (BMI 25.0-29.9): Code(s): E66.3 - Overweight Plan: doing excellent Sometimes on work days he has shake, bar, bar, meal continues w excellent aerobic activity. Suggested to increase weight training (has Tonal at home) rtc 3 months check 1 year post op labs Orders: Orders Vitamin B12 and Folate Today E66.3 - Overweight, Z98.84 - Bariatric surgery status Basic Metabolic Panel Today E66.3 - Overweight, Z98.84 - Bariatric surgery status C Reactive Protein Today E66.3 - Overweight, Z98.84 - Bariatric surgery status Ferritin Today E66.3 - Overweight, Z98.84 - Bariatric surgery status Hemoglobin A1c Today E66.3 - Overweight, Z98.84 - Bariatric surgery status Insulin Today E66.3 - Overweight, Z98.84 - Bariatric surgery status IRON PROFILE Today E66.3 - Overweight, Z98.84 - Bariatric surgery status Lipid Panel Today E66.3 - Overweight, Z98.84 - Bariatric surgery status PTHI Today E66.3 - Overweight, Z98.84 - Bariatric surgery status TSH reflex Free T4 Today E66.3 - Overweight, Z98.84 - Bariatric surgery status Vitamin A Today E66.3 - Overweight, Z98.84 - Bariatric surgery status Vitamin B1 Today E66.3 - Overweight, Z98.84 - Bariatric surgery status Vitamin D 25-OH Total Today E66.3 - Overweight, Z98.84 - Bariatric surgery status Zinc Today E66.3 - Overweight, Z98.84 - Bariatric surgery status Complete Blood Count Auto Diff Today E66.3 - Overweight, Z98.84 - Bariatric surgery status Coding Level of Care Code Est Pt Level 4 (17664) Diagnoses Overweight (BMI 25.0-29.9) E66.3 Time Spent (min) 40
[2022-10-23 09:14] VITALS: BP 143/75; PULSE 60; TEMP 36.8; O2SAT 100; BMI 26.2
== END 2022-10-23 09:50 | disposition home or self-care (01) ==
PROVIDERS: PCP Internal Medicine; Visit Provider Physician Assistant Surgical
DX: E66.3 Overweight (principal); Z68.26 Body mass index [BMI] 26.0-26.9, adult
CPT/HCPCS: 99214

== ENCOUNTER → 2022-10-23 09:06 | Outpatient (BNVA) | payer OTHER, SELFPAY | PROVIDERS: PCP Internal Medicine; Visit Provider Physician Assistant Surgical | DX: E66.3 Overweight (principal); Z68.26 Body mass index [BMI] 26.0-26.9, adult; Z98.84 Bariatric surgery status | CPT/HCPCS: 99212 ==

== ENCOUNTER 2023-08-27 09:10 | Outpatient (REF) | payer OTHER, SELFPAY ==
[2023-08-27 09:25] LABS: MANUAL DIFF FLAG NO
[2023-08-27 10:25] LABS: Basophils Absolute Auto 0.1 X10*3/uL (0.0-0.2); Basophils Percent Auto 0.8 % (0-2); Eosinophils Absolute Auto 0.4 X10*3/uL (0.0-0.4); Eosinophils Percent Auto 5.5 % (0-4); Hematocrit 40.6 % (42.0-52.0); Imm Gran Abs Auto 0.02 X10*3/uL (0.00-0.03); Imm Gran Pct Auto 0.3 % (0.0-0.4); Lymphocytes Absolute Auto 1.5 X10*3/uL (1.2-4.9); Lymphocytes Percent Auto 22.8 % (20-40); Mean Corpuscular HGB Conc 34.5 g/dl (31.0-36.0); Mean Corpuscular Hemoglobin 30.6 pg (27.0-33.0); Mean Corpuscular Volume 88.8 fL (80.0-98.0); Mean Platelet Volume 9.7 fL (9.4-12.4); Monocytes Absolute Auto 0.5 X10*3/uL (0.1-1.2); Monocytes Percent Auto 7.5 % (2-11); Neutrophils Percent Auto 63.1 % (45-73); Platelet Count 237 X10*3/uL (160-400); Red Blood Count 4.57 X10*6/uL (4.60-5.80); Red Cell Distribution Width 11.9 % (11.0-16.0); White Blood Count 6.4 X10*3/uL (4.8-10.8)
[2023-08-27 10:51] LABS: Alanine Aminotransferase 15 U/L (0-40); Alkaline Phosphatase 71 U/L (39-117); Anion Gap 10 (12-20); Aspartate Amino Transferase 14 U/L (5-37); Bilirubin Total 0.9 mg/dL (0.0-1.0); Blood Urea Nitrogen 15 mg/dL (9-16); Calcium 9.3 mg/dL (8.4-10.2); Carbon Dioxide 30 mmol/L (22-29); Chloride 109 mmol/L (96-108); Cholesterol 150 mg/dL (<200); Estimated Glomerular Filt Rate > 60; Glucose Random 74 mg/dL (60-115); HDL Cholesterol 38 mg/dL (>40); LDL Cholesterol Calculated 93 mg/dL (<100); Potassium 3.5 mmol/L (3.3-5.1); Sodium 145 mmol/L (135-145); Total Protein 7.2 g/dL (6.5-8.0); Triglycerides 97 mg/dL (<150)
== END 2023-08-27 09:11 | disposition home or self-care (01) ==
LOC: HO.LAB 09:10
PROVIDERS: PCP Internal Medicine; Visit Provider Internal Medicine
DX: Z00.00 Encounter for general adult medical examination without abnormal findings (principal); I10 Essential (primary) hypertension; M54.50 Low back pain, unspecified; E78.2 Mixed hyperlipidemia
CPT/HCPCS: 36415; 80053; 80061; 85025

== ENCOUNTER 2024-05-25 09:10 | Outpatient (AMB) | payer OTHER, SELFPAY ==
--- NOTE | 2024-05-25 09:06 | MHC.OFFVISWM ---
VS Expanded 05/25/24 09:08 Height 6 ft Weight 204 lb BMI 27.7 Intake Visit Reasons: TV PO LSG 10/18/21 *SEE COMMENTS* Allergies No Known Allergies Allergy (Verified 10/23/22 09:13) Medication List - Last Reconciled 05/25/24 by FAUSTO Osman [celebrate Brody+D PO BID] [MVI PO DAILY] HPI Comments Details: This?is a?49?yo male who is s/p LSG 10/18/2021. Presents for 2 year 8 month post op visit. Weight at last visit on 10/23/2022 was 193.4 pounds with a BMI of 26.2, weight today is 204 pounds, representing a 10.6 pound weight gain with a BMI today of 27.7.? No complaints of nausea, emesis, abdominal pain or reflux, or constipation. Works 3rd shift. Pt reports he was prescribed a med for high BP which was measured at his PCP's office, but never took med; he measures his BP at home himself and it is always okay. Present meal plan includes: Atkins RTD each 2 shakes per day 5-6 forks protein/5-6 forks veg 5-6 forks protein/5-6 forks veg hydration is adequate takes MVI Exercise routine includes: walking/jogging outside, also takes 10k steps per day at work Pt reports excess skin of abdomen particularly upper abdomen that has started to cause some issues for him. The skin is uneven, with more excess skin on the right side compared to left. The unevenness causes some pulling on the right side which is very uncomfortable. The skin does get itchy and pt has to clean frequently. 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 He also has itchy areas in skin folds here. He has multiple skin tags which are also uncomfortable, snag on clothing sometimes. [facility] Medical History Adjustment disorder BMI 34.0-34.9,adult BMI 37.0-37.9, adult COVID-19 vaccination declined GERD (gastroesophageal reflux disease) Obesity (BMI 30-39.9) Surgical History History of ankle surgery History of incision and drainage S/P laparoscopic sleeve gastrectomy Family History Mother Hypertension Stroke Father No problems noted. Brother Hypertension Sister No problems noted. Son No problems noted. Son No problems noted. Son No problems noted. Son No problems noted. Son No problems noted. Son No problems noted. Daughter No problems noted. Daughter No problems noted. Daughter No problems noted. Daughter No problems noted. Social History Are you a primary career technology teacher to a significant other at home: No Do you presently have visiting nurse or other home services: No Alcohol intake: never Patient Tobacco Use Status: Never used Tobacco service: No Current occupational status: other Telehealth Telehealth Telehealth Platform: Telephone Location of provider rendering services: practice address Location of patient: address on file Patient Identification confirmed using: Name, : Yes Telehealth method: voice only Patient verbally consented to treatment: Yes Patient verbally consented to billing insurance company: Yes Patient informed of any privacy concerns related to visit: Yes Minutes spent on Phone/Video with Pt.: 18 Assessment & Plan Assessment & Plan (1) Overweight (BMI 25.0-29.9): Code(s): E66.3 - Overweight Category: Medical (2) S/P laparoscopic sleeve gastrectomy: Comment: 10/18/21 Code(s): Z98.84 - Bariatric surgery status Category: Medical (3) Excess skin: Code(s): L98.7 - Excessive and redundant skin and subcutaneous tissue Category: Medical Plan Consider referral to Dr. Gomez for consult for excess skin of chest. Pt deciding if he wants to proceed with this. Goal BMI <27 prior to skin removal surgery with us; 5lb weight loss for pt discussed. Labs ordered. Clotrimazole ointment ordered. RTC 6 weeks for in person visit, for physical exam. Orders: Orders Insulin Today Z98.84 - Bariatric surgery status Hemoglobin A1c Today Z98.84 - Bariatric surgery status Complete Blood Count Auto Diff Today Z98.84 - Bariatric surgery status Comprehensive Met. Panel Today Z98.84 - Bariatric surgery status Vitamin B12 and Folate Today Z98.84 - Bariatric surgery status Zinc Today Z98.84 - Bariatric surgery status Vitamin B1 Today Z98.84 - Bariatric surgery status Vitamin A Today Z98.84 - Bariatric surgery status Lipid Panel Today Z98.84 - Bariatric surgery status IRON PROFILE Today Z98.84 - Bariatric surgery status C Reactive Protein Today Z98.84 - Bariatric surgery status TSH reflex Free T4 Today Z98.84 - Bariatric surgery status Ferritin Today Z98.84 - Bariatric surgery status Vitamin D 25-OH Total Today Z98.84 - Bariatric surgery status Medications: New clotrimazole 1% 1 appl topical BID 45 grams 3RF
[2024-05-25 09:08] VITALS: BMI 27.7
== END 2024-05-25 09:29 | disposition home or self-care (01) ==
LOC: HO.HBS 09:10
PROVIDERS: PCP Internal Medicine; Visit Provider Physician Assistant Surgical
DX: L98.7 Excessive and redundant skin and subcutaneous tissue (principal); E66.3 Overweight; Z68.27 Body mass index [BMI] 27.0-27.9, adult; Z98.84 Bariatric surgery status
CPT/HCPCS: 99214; G2211

== ENCOUNTER 2024-08-24 14:50 | Outpatient (REF) | payer OTHER, SELFPAY ==
[2024-08-24 15:01] LABS: MANUAL DIFF FLAG NO
[2024-08-24 15:35] LABS: Hemoglobin A1C 108.4673 umol/L; Total Hemoglobin (HGBA1C) 3599.2608 umol/L
[2024-08-24 15:36] LABS: Hematocrit 39.8 % (42.0-52.0); Hemoglobin 13.8 g/dl (14.0-18.0); Imm Gran Abs Auto 0.01 X10*3/uL (0.00-0.03); Imm Gran Pct Auto 0.1 % (0.0-0.4); Lymphocytes Absolute Auto 1.7 X10*3/uL (1.2-4.9); Mean Corpuscular HGB Conc 34.7 g/dl (31.0-36.0); Mean Corpuscular Hemoglobin 29.9 pg (27.0-33.0); Mean Corpuscular Volume 86.3 fL (80.0-98.0); NRBC Abs Auto 0.000 X10*3/uL (0.0-0.012); NRBC Pct Auto 0.0 /100WBC (0.0-0.2); Platelet Count 225 X10*3/uL (160-400); Red Blood Count 4.61 X10*6/uL (4.60-5.80); White Blood Count 7.4 X10*3/uL (4.8-10.8)
[2024-08-24 16:17] LABS: Alanine Aminotransferase 15 U/L (0-40); Albumin Level 4.3 g/dL (3.5-5.0); Alkaline Phosphatase 73 U/L (39-117); Anion Gap 12 (12-20); Aspartate Amino Transferase 30 U/L (5-37); Blood Urea Nitrogen 20 mg/dL (9-16); Calcium 9.3 mg/dL (8.4-10.2); Carbon Dioxide 26 mmol/L (22-29); Chloride 111 mmol/L (96-108); Cholesterol 150 mg/dL (<200); Estimated Glomerular Filt Rate 58; HDL Cholesterol 33 mg/dL (>40); Iron 73 mcg/dL (45-160); Percent Iron Saturation 34 % (15-50); Potassium 4.0 mmol/L (3.3-5.1); Sodium 145 mmol/L (135-145); Total Iron Binding Capacity 216 mcg/dL (228-428); Total Protein 7.0 g/dL (6.5-8.0); Triglycerides 110 mg/dL (<150); Unsaturated Iron Binding 143 ug/dL
[2024-08-24 16:39] LABS: Ferritin 178 ng/mL (20-250)
[2024-08-24 16:43] LABS: Folate 9.3 ng/mL (> or = 4.0); Vitamin B12 1384 pg/mL (200-900)
== END 2024-08-24 14:51 | disposition home or self-care (01) ==
LOC: HO.LAB 14:50
PROVIDERS: PCP Internal Medicine; Visit Provider Physician Assistant Surgical
DX: Z98.84 Bariatric surgery status (principal)
CPT/HCPCS: 36415; 80053; 80061; 82306; 82607; 82728; 82746; 83036; 83525; 83540; 84425; 84443; 84590; 84630; 85025; 86140

== ENCOUNTER 2024-09-14 15:03 | Outpatient (AMB) | payer OTHER, SELFPAY ==
--- NOTE | 2024-09-14 15:09 | A.OFFVIS_ITS ---
VS Expanded 09/14/24 15:16 BP 150/65 H Blood Pressure Location Rt brachial Blood Pressure Position Sitting Pulse 72 Pulse Source Pulse Oximeter Temp 97.8 F Temperature Source Temporal Artery Scan Pulse Oximetry 98 Oxygen Delivery Method Room Air Height 6 ft Weight 194 lb 6.4 oz BMI 26.4 Body Fat % 20.0 Body Fat Mass 38.8 Fat Free Mass 155.4 Visceral Fat Rating 9.0 Body Water % 56.2 Body Water Mass 109.2 Muscle Mass/Score 147.8 Basal Metabolic Rate/Score 2,044 Intake Visit Reasons: OV POST OP LSG 10/18/21 Allergies No Known Allergies Allergy (Verified 09/14/24 15:12) Medication List - Last Reconciled 09/14/24 by FAUSTO Osman [celebrate Brody+D PO BID] clotrimazole 1% 1 appl topical BID [MVI PO DAILY] thiamine HCl (vitamin B1) 100 mg PO DAILY HPI Comments Details: This?is a?49?yo male who is s/p LSG 10/18/2021. Presents for 2 year 11 month post op visit. Weight at last visit on 05/25/2024 was 204 pounds with a BMI of 27.7, weight today is 194.4 pounds, representing a 9.6 pound weight loss with a BMI today of 26.4.? No complaints of nausea, emesis, abdominal pain or reflux, or constipation. Present meal plan includes: Atkins RTD each 2 shakes per day 5-6 forks protein/5-6 forks veg 5-6 forks protein/5-6 forks veg hydration is adequate takes MVI Exercise routine includes: walking/jogging outside, also takes 10k steps per day at work Pt reports excess skin of abdomen particularly upper abdomen that has started to cause some issues for him. The skin is uneven, with more excess skin on the right side compared to left. The unevenness causes some pulling on the right side which is very uncomfortable. The skin does get itchy and pt has to clean frequently. He has tried to use clotrimazole ointment prescribed by our office to help prevent skin issues but this has not helped much. 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 He also has itchy areas in skin folds here. Due to the conditions of his job (works in very hot temperatures), skin issues have gotten worse. He has multiple skin tags which are also uncomfortable, snag on clothing sometimes. Regarding excess skin of chest discussed at last visit- [facility] Medical History Adjustment disorder BMI 34.0-34.9,adult BMI 37.0-37.9, adult COVID-19 vaccination declined GERD (gastroesophageal reflux disease) Obesity (BMI 30-39.9) Surgical History History of ankle surgery History of incision and drainage S/P laparoscopic sleeve gastrectomy Family History Mother Hypertension Stroke Father No problems noted. Brother Hypertension Sister No problems noted. Son No problems noted. Son No problems noted. Son No problems noted. Son No problems noted. Son No problems noted. Son No problems noted. Daughter No problems noted. Daughter No problems noted. Daughter No problems noted. Daughter No problems noted. Social History Are you a primary care consultant to a significant other at home: No Do you presently have visiting nurse or other home services: No Alcohol intake: never Patient Tobacco Use Status: Never used Tobacco service: No Current occupational status: other Physical Exam Const General: cooperative, comfortable and no acute distress Orientation/consciousness: patient oriented x3 GI Other: soft, nontender, nondistended, incisions well healed, no hernia, no masses Grade II pannus with excoriation/erythematous area on right side of skin fold (photographed) Neuro General: patient oriented x3 Assessment & Plan Assessment & Plan (1) S/P laparoscopic sleeve gastrectomy: Comment: 10/18/21 Code(s): Z98.84 - Bariatric surgery status Category: Medical (2) Overweight (BMI 25.0-29.9): Code(s): E66.3 - Overweight Category: Medical (3) Excess skin: Code(s): L98.7 - Excessive and redundant skin and subcutaneous tissue Category: Medical Plan Pt has done well with weight loss and achieved 33.7% TBWL. He is experiencing issues of excess skin of abdomen resulting in frequent rashes/irritation which are unrelieved by topical antifungals. In addition he is experiencing limitations/discomfort in activities of daily living, including walking, bending including impacting his ability to do his job comfortably. He requires the use of special clothing at all times to try to prevent discomfort but these issues have not been completely relieved by conservative measures. He would benefit from definitive treatment of panniculectomy. Pt is also interested in chest surgery and would like an opinion from a surgeon who performs these procedures. Will refer to Dr. Gomez's office. Pt will see him in consultation and decide whether he would like to proceed with their office or remain with us for panniculectomy only.
[2024-09-14 15:16] VITALS: BP 150/65; PULSE 72; TEMP 36.6; O2SAT 98; BMI 26.4
== END 2024-09-14 15:40 | disposition home or self-care (01) ==
LOC: HO.HBS 15:04
PROVIDERS: PCP Internal Medicine; Visit Provider Physician Assistant Surgical
DX: E66.3 Overweight (principal); Z98.84 Bariatric surgery status; L98.7 Excessive and redundant skin and subcutaneous tissue
CPT/HCPCS: 99214

== ENCOUNTER → 2024-09-14 15:03 | Outpatient (BNVA) | payer OTHER, SELFPAY | PROVIDERS: PCP Internal Medicine; Visit Provider Physician Assistant Surgical | DX: Z98.84 Bariatric surgery status (principal); E66.3 Overweight; L98.7 Excessive and redundant skin and subcutaneous tissue | CPT/HCPCS: 99212 ==